=== PATIENT | male | born 1970 | race Caucasian/White ===

== ENCOUNTER 2020-10-19 22:29 | Emergency (ER) | payer OTHER, SELFPAY ==
--- NOTE | 2020-10-19 22:52 | XR_ITS ---
EXAMINATION: RIGHT HAND CLINICAL INFORMATION: Injury to the index finger COMPARISON: None TECHNIQUE: 4 views FINDINGS: Comminuted fracture of the distal tuft of the index finger. There is an old healed fracture of the midshaft of the fourth and fifth metacarpal. XR/XR hand wrist RT IMPRESSION: There is a comminuted fracture of the distal tuft of the index finger.
[2020-10-19 23:09] VITALS: BP 123/87; PULSE 94; RESP 16; TEMP 36.8; O2SAT 96; BMI 22.1
--- NOTE | 2020-10-19 23:24 | ED.EXTPRO ---
HPI - Extremity Problem General Chief complaint: Extremity Injury, Upper Stated complaint: hand injury Source: patient Mode of arrival: ambulatory Limitations: no limitations History of Present Illness HPI Narrative: patient presents to ED for right index pain. Patient states he works in [employer] and piece of metal fell onto the right index finger. Patient denies any other trauma. Patient states he is up-to-date with tetanus Related Data Previous Rx's Medication Instructions Recorded cephalexin [Keflex] 500 mg PO QID #28 cap 10/20/20 naproxen 500 mg PO BID PRN #20 tab 10/20/20 Allergies Allergy/AdvReac Type Severity Reaction Status Date / Time No Known Allergies Allergy Unverified 07/28/20 14:55 Review of Systems Review of Systems: Yes all other systems are reviewed and are negative Constitutional: Constitutional: Reports as per HPI and Reports no additional constitutional complaints Eyes: Eyes: Reports as per HPI and Reports no additional eye complaints ENT: Reports system reviewed and no additional complaints, except as documented and Reports as per HPI Cardiovascular: Cardiovascular: Reports as per HPI and Reports no additional cardiovascular complaints Respiratory: Respiratory: Reports as per HPI and Reports no additional respiratory complaints Gastrointestinal: Gastrointestinal: Reports as per HPI and Reports no additional gastrointestinal complaints Genitourinary: Genitourinary: Reports no additional male genitourinary complaints and Reports as per HPI Musculoskeletal: Musculoskeletal: Reports no additional musculoskeletal complaints and Reports as per HPI Comments: right index finger pain Neurologic: Reports system reviewed and no additional complaints, except as documented and Reports as per HPI Psychiatric: Psychiatric: Reports no additional psychiatric complaints and Reports as per HPI [facility] Past Medical History Medical History (Updated 10/20/20 @ 00:08 by RAAD Rico) Bronchitis Surgical History (Updated 10/19/20 @ 23:14 by Carmenza Perez) H/O hand surgery Social History Social History Smoking Status: Current every day smoker Use of substances other than those prescribed or required for medical reasons: No Advance Directives: No Advance Directives Information Provided: No Physical Exam Vital Signs: Vital Signs: Last Vital Signs Temp 98.3 F 10/19/20 23:09 Pulse 94 10/19/20 23:09 Resp 16 10/19/20 23:09 BP 123/87 10/19/20 23:09 Pulse Ox 96 10/19/20 23:09 Body Mass Index 22.1 Const: General: cooperative, healthy appearing, comfortable, no acute distress, well developed, alert and awake Orientation/consciousness: oriented to person and oriented to place HENMT: Head: Yes normal to inspection and Yes No palpable skull fracture present Eyes: General: appearance normal, both eyes and all related structures Neck: Neck: Yes normal visual inspection, Yes full ROM, Yes no meningeal signs, Yes trachea midline, Yes supple and No tender Chest: Chest palpation & inspection: normal inspection of the chest, normal palpation of entire chest wall and no localized rib tenderness Resp: Effort & Inspection: normal respiratory effort and able to speak in complete sentences Auscultation: clear to auscultation bilaterally Cardio: Jugular venous distension: no JVD Heart sounds: S1 normal heart sound present and S2 normal heart sound present GI: Inspection: Yes normal to inspection : General: No CVA tenderness and Yes no CVA tenderness Back/Spine/Pelvis: Back: no CVA tenderness, No CVA tenderness and No back tenderness Skin: General skin exam: no rashes or lesions noted, elasticity normal and turgor normal Neuro: General: oriented to person, oriented to place, gait normal, no meningeal signs and CN's II-XI intact bilaterally Cranial nerves: Yes CN's II-XII intact bilaterally Extrem: Other: right index finger positive for subungual hematoma. AAA refill intact of index finger. Rest of hand negative for deformity or obvious sign of trauma. Psych: Appearance: grossly normal and well kempt Course Course Course Narrative: Patient x-ray shows immediate tuft fracture right index finger. Patient informed of this. Will perform subungual hematoma drainage. Reevaluation(s) Reevaluation #1: 2% lidocaine was used to anesthetize right index finger. 3 mL of lidocaine was used. Before injection for digital block, Betadine was used to clean area. Size 18 needle was used to bore hole into right index nail to drain subungual hematoma. Patient feels better after this procedure. Patient states pressure relieved. Patient placed in finger splint by nurse. Patient will be discharged with antibiotics due to tuft fracture. Time: 00:06 MDM - Extremity (Nontraumatic) MDM Narrative Medical decision making narrative: right index the fracture Discharge Plan Discharge Clinical Impression: Closed fracture of tuft of distal phalanx of finger Patient Disposition: Home, Self-Care Instructions: Finger Fracture (ED) Additional Instructions: return to the ED for worsening pain, swelling of finger, redness, pus discharge, or any other concerning symptoms. Prescriptions: New cephalexin [Keflex] 500 mg capsule 500 mg PO QID Qty: 28 RF: 0 naproxen 500 mg tablet 500 mg PO BID PRN (Reason: pain) Qty: 20 RF: 0 Referrals: Evangelina Brambila MD [Physician] - 2 days ( right index finger distal tuft fracture.) Stand Alone Forms: Work/School Release Interventions: ED Discharge Assessment Last Done: 10/20/20 00:30 Discharge Date/Time: 10/20/20 00:33 Print Language: Romanian
[2020-10-19] MEDS: Ibuprofen 800 MG TABLET PO (23:25)
[2020-10-19] MEDS: Lidocaine HCl 2 % MPF 5 ML VIAL INFILTRATI (23:39)
== END 2020-10-20 00:33 | disposition home or self-care (01) ==
PROVIDERS: Emergency Provider Emergency Medicine
DX: S62.660A Nondisplaced fracture of distal phalanx of right index finger, initial encounter for closed fracture (principal); S60.021A Contusion of right index finger without damage to nail, initial encounter; W23.1XXA Caught, crushed, jammed, or pinched between stationary objects, initial encounter; Y93.9 Activity, unspecified; Y92.9 Unspecified place or not applicable; Y99.0 Civilian activity done for income or pay
CPT/HCPCS: 11740; 73110; 73130; 99283; 99284

== ENCOUNTER 2021-06-25 16:13 | Emergency (ER) | payer OTHER, SELFPAY ==
--- NOTE | ~2021-06-25 | XR_ITS ---
EXAMINATION: XR HAND, RIGHT CLINICAL INFORMATION: Third finger pain. COMPARISON: Right hand and wrist radiographs dated 10/19/2020. TECHNIQUE: PA, lateral, and oblique views of the right hand. FINDINGS: No fracture or dislocation. Normal carpal alignment. No significant joint space narrowing or marginal osteophytes. No osseous erosion. No periarticular osteopenia. No abnormal soft tissue calcification. XR/XR hand RT min 3V IMPRESSION: Unremarkable examination.
[2021-06-25 16:21] VITALS: BP 160/93; PULSE 98; RESP 18; TEMP 36.7; O2SAT 98; BMI 20.5
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
[2021-06-25] MEDS: Amoxicillin/Potassium Clav 875 MG TABLET PO (19:51)
== END 2021-06-25 19:54 | disposition home or self-care (01) ==
PROVIDERS: Emergency Provider Emergency Medicine
DX: S63.652A Sprain of metacarpophalangeal joint of right middle finger, initial encounter (principal); M79.641 Pain in right hand; S63.91XA Sprain of unspecified part of right wrist and hand, initial encounter; Y29.XXXA Contact with blunt object, undetermined intent, initial encounter; Y93.9 Activity, unspecified; Y92.89 Other specified places as the place of occurrence of the external cause; Y99.9 Unspecified external cause status
CPT/HCPCS: 73130; 99283